=== PATIENT | male | born 1960 | race Two or more races ===

== ENCOUNTER 2024-02-25 11:19 | Emergency (ER) | payer OTHER ==
[2024-02-25] MEDS: methylPREDNISolone Sodium Succinate 125 MG/2 ML SDV IM ONE (13:21)
[2024-02-25] MEDS: Take Home: Azithromycin 250 MG, 2 Tab Pack PO ONE (13:21)
== END 2024-02-25 13:26 | disposition home or self-care (01) ==
LOC: EDBD 11:19 → VM.ED 11:19
DX: J45.21 Mild intermittent asthma with (acute) exacerbation (principal); Z79.899 Other long term (current) drug therapy
CPT/HCPCS: 71046; 87428; 96372; 99283; 99284; A9270-GY; J2919